=== PATIENT | male | born 1950 | race Caucasian/White ===

== ENCOUNTER → 2018-01-29 | Outpatient (CLI) | payer OTHER ==
--- NOTE | 2018-01-29 10:52 | DIAGNOSTIC IMAGING REPORT ---
CERVICAL SPINE MRI HISTORY: Numbness in neck. WITH FLEX, EXTENSION CERVICAL PAIN TECHNIQUE: Multiplanar multisequence MRI of the cervical spine was performed without the use of contrast. Additional T2 images were performed in flexion and extension. COMPARISON STUDY: None. FINDINGS: Straightening of the cervical spine. 1.5 mm of retrolisthesis of C6 on C7. Moderate disc space narrowing at C5-C6 and mild disc space narrowing at C6-C7. Mild to moderate facet degenerative changes throughout the cervical spine. This is most pronounced at the C2-C4 levels. The visualized posterior fossa is unremarkable. The cervical spinal cord is normal in course, caliber, and signal intensity. Prevertebral soft tissues and the C1-C2 interval are intact. There is a 5 mm cystic focus within the right posterior epidural space at the C2 level. This results in partial effacement of the right anterior thecal sac without cord deformity. This cystic focus is likely due to the degenerative change at the C1-C2 level. C2-C3: Small broad-based posterior disc osteophyte complex resulting in partial effacement of the anterior thecal sac without cord deformity. There is mild right and severe left neural foraminal narrowing. C3-C4: Small broad-based posterior disc bulge with a focal central annular tear resulting in partial effacement of the anterior thecal sac without cord deformity. This is more pronounced on the extension views. There is severe right and moderate to severe left neural foraminal narrowing. C4-C5: No significant central canal narrowing. There is severe right and moderate to severe left neural foraminal narrowing. C5-C6: No significant central canal narrowing. There is severe right and moderate to severe left neural foraminal narrowing. C6-C7: Small broad-based posterior disc osteophyte complex which results in near-complete effacement of the thecal sac without significant cord deformity. This is more pronounced on the extension views. There are severe bilateral neural foraminal narrowing due to the uncovertebral and facet hypertrophy. C7-T1: No significant central canal or neural foraminal narrowing. IMPRESSION: 1. Straightening of the cervical spine. 2. Multilevel cervical spondylosis as described above most pronounced at the C6-C7 level. Areas of central canal compromise are more pronounced on the extension views. 3. Multilevel bilateral neural foraminal narrowing as described above. Electronically signed by: Montez San M.D. 01/29/2018 10:51 AM Dictated Date/Time: 01/29/2018 10:40 AM
== END | disposition home or self-care (01) ==
LOC: C.MRIBC 08:38
PROVIDERS: ATTEND Neurological Surgery
DX: M47.22 Other spondylosis with radiculopathy, cervical region (principal)